=== PATIENT | female | born 1965 | race Caucasian/White ===

== ENCOUNTER → 2016-11-15 | Outpatient (CLI) | payer OTHER ==
--- NOTE | 2016-11-21 09:13 | CT ---
EXAMINATION TYPE: CT chest w con DATE OF EXAM: 11/15/2016 10:37 AM COMPARISON: Outside study 08/12/2015 HISTORY: Patient has solitary pulmonary nodule-right middle lobe CT DLP: 205.5 mGycm Automated exposure control for dose reduction was used. CONTRAST: CT scan of the chest is performed with IV Contrast, patient injected with 100 mL of Omnipaque 300. FINDINGS: LUNGS: 3 mm pulmonary nodule right middle lobe is stable. No additional pulmonary nodules identified. No evidence for parenchymal infiltrate or volume loss. There is no pleural effusion or pneumothorax seen. The tracheobronchial tree is patent. MEDIASTINUM: There are no greater than 1 cm hilar or mediastinal lymph nodes. No pericardial effusi on is seen. Thoracic aorta is of normal caliber. The heart is not enlarged. UPPER ABDOMEN: Simple cyst left hepatic lobe measures 7 mm. OTHER: No additional significant abnormality is seen. IMPRESSION: 1. Stable left pulmonary nodule over a two-year timeframe indicating benign process. No new or suspic ious nodules identified.
== END | disposition home or self-care (01) ==
LOC: RADCTMAIN 09:28
PROVIDERS: ATTEND Internal Medicine Critical Care Medicine
DX: R91.1 Solitary pulmonary nodule (principal)
CPT/HCPCS: 71260; Q9967

== ENCOUNTER → 2017-05-31 | Outpatient (CLI) | payer OTHER ==
--- NOTE | 2017-06-01 08:19 | CT ---
EXAMINATION TYPE: CT soft tissue neck w con DATE OF EXAM: 05/31/2017 HISTORY: Chronic cough for 3-4 years COMPARISON: CT chest dated 11/15/2016 CT DLP: 598 mGycm. Automated Exposure Control for Dose Reduction was Utilized. TECHNIQUE: CT scan of the neck is performed with IV Contrast, patient injected with 100 mL of Omnipa que 300, axial images are obtained, coronal and sagittal reformatted images are reviewed. FINDINGS: Airway: No gross abnormality seen. No tracheal polyp or mass is seen. Visualized upper airway is gonzalez nt and unremarkable. False and true vocal cords appear symmetric. Subcentimeter hypoattenuation withi n the left thyroid lobe is too small to characterize. Parotid/submandibular glands: Parotids and submandibular glands are symmetric without inflammatory ch jerome. Fossa of Rosenmuller and superficial mucosal space are well-preserved. Carotid/Vascular Structures: Ascending aorta and pulmonary artery are within normal limits. The great vessels have a normal configuration and branching pattern with no evidence of stenosis within in the visualized carotid systems. Vertebral arteries are codominant. Exam is not optimized for evaluation of intracranial structures. Osseous Structures: Visualized paranasal sinuses are well aerated. Osseous structures appear intact. Mild multilevel degenerative disc disease is seen at C4-C5 and C5-C6. Other: Few nonenlarged anterior and posterior cervical chain lymph nodes are present. Minimal subsegm ental dependent atelectasis is seen as well as mild biapical pleural-parenchymal thickening. IMPRESSION: 1. No CT evidence of tracheal polyp or mass, asymmetry of the vocal cords, paranasal sinus disease, o r apical lung mass in this patient with a history of cough. No CT findings to correspond to the patie nt's clinical concern.
== END | disposition home or self-care (01) ==
LOC: RADCTMAIN 18:40
PROVIDERS: ATTEND Internal Medicine Critical Care Medicine
DX: R22.1 Localized swelling, mass and lump, neck (principal); Z88.2 Allergy status to sulfonamides
CPT/HCPCS: 70491; Q9967

== ENCOUNTER → 2017-10-20 | Outpatient (CLI) | payer OTHER ==
--- NOTE | 2017-10-20 11:48 | CT ---
EXAMINATION TYPE: CT soft tissue neck w con DATE OF EXAM: 10/20/2017 9:27 AM COMPARISON: CT soft tissue neck 05/31/2017 HISTORY: Neck pain CT DLP: 273.10 mGycm Automated exposure control for dose reduction was used. CONTRAST: CT scan of the neck is performed following with IV Contrast, patient injected with 100 ml mL of Omnip aque 300. Axial images are obtained, coronal and sagittal reformatted images are reviewed. FINDINGS: Airway: No gross abnormality seen. Parotid/submandibular glands: No gross abnormality seen. The overlying BB the site of patient's symp tomatology is at the level of the submandibular gland on the left. Facial vein is noted at this level . Carotid/Vascular Structures: Patent, there is no evident carotid stenosis.. Osseous Structures: Skull base is normal. Degenerative disc changes are mild as on prior exam. Loss o f lordosis could be due to muscle spasm. Other: Minimal inflammatory change noted in the maxillary sinus on the right. No evident adenopathy. IMPRESSION: Mild degenerative disc disease.
== END | disposition home or self-care (01) ==
LOC: RADCTMAIN 08:57
PROVIDERS: ATTEND Otolaryngology
DX: M50.30 Other cervical disc degeneration, unspecified cervical region (principal)
CPT/HCPCS: 70491; Q9967

== ENCOUNTER → 2017-12-26 | Outpatient (CLI) | payer OTHER ==
--- NOTE | 2017-12-27 11:53 | ECHOF ---
Referral Reason:R01.1 CARDIAC MURMUR MEASUREMENTS -------- HEIGHT: 165.1 cm WEIGHT: 65.8 kg BP: IVSd: 1.0 cm (0.6 - 1.1) LVIDd: 4.4 cm (3.9 - 5.3) LVPWd: 1.2 cm (0.6 - 1.1) IVSs: 1.5 cm LVIDs: 2.5 cm LVPWs: 1.8 cm Ao Diam: 2.9 cm (2.0 - 3.7) AV Cusp: 1.4 cm (1.5 - 2.6) LA Diam: 2.9 cm (2.7 - 3.8) MV EXCURSION: 14.881 mm (> 18.000) MV EF SLOPE: 99 mm/s (70 - 150) EPSS: 0.4 cm MV E Andreas: 0.78 m/s MV DecT: 230 ms MV A Andreas: 0.53 m/s MV E/A Ratio: 1.46 RAP: 5.00 mmHg RVSP: 22.11 mmHg FINDINGS -------- Sinus rhythm. This was a technically difficult study with suboptimal apical views. The left ventricular size is normal. Left ventricular wall thickness is normal. Overall left vent ricular systolic function is normal with, an EF between 55 - 60 %. The right ventricle is normal in size and function. The left atrium is normal in size. The right atrium is normal in size. Aortic valve is trileaflet and is mildly thickened. Mild mitral regurgitation is present. There is mild mitral valve prolapse. Mild tricuspid regurgitation present. The right ventricular systolic pressure, as measured by Doppl er, is 22.11mmHg. Pulmonic valve appears structurally normal. The aortic root size is normal. Normal inferior vena cava with normal inspiratory collapse consistent with estimated right atrial pre ssure of 5 mmHg. The pericardium is normal. CONCLUSIONS -------- 1. Sinus rhythm. 2. This was a technically difficult study with suboptimal apical views. 3. The left ventricular size is normal. 4. Left ventricular wall thickness is normal. 5. Overall left ventricular systolic function is normal with, an EF between 55 - 60 %. 6. The right ventricle is normal in size and function. 7. The left atrium is normal in size. 8. The right atrium is normal in size. 9. Aortic valve is trileaflet and is mildly thickened. 10. Mild mitral regurgitation is present. 11. There is mild mitral valve prolapse. 12. Mild tricuspid regurgitation present. 13. The right ventricular systolic pressure, as measured by Doppler, is 22.11mmHg. 14. Pulmonic valve appears structurally normal. 15. The aortic root size is normal. 16. Normal inferior vena cava with normal inspiratory collapse consistent with estimated right atrial pressure of 5 mmHg. 17. The pericardium is normal. HOTEL ATTENDANT: Tasha Myers RDCS
== END ==
LOC: RADECHMAIN 15:53
PROVIDERS: ATTEND Family Medicine
DX: I08.1 Rheumatic disorders of both mitral and tricuspid valves (principal)
CPT/HCPCS: 93306

== ENCOUNTER → 2019-02-12 | Outpatient (CLI) | payer OTHER ==
--- NOTE | 2019-02-12 11:41 | XR ---
EXAMINATION TYPE: XR abdomen 1V DATE OF EXAM: 02/12/2019 COMPARISON: NONE HISTORY: Nausea and constipation TECHNIQUE: One view abdominal series FINDINGS: The osseous structures are intact. The bowel gas pattern is nonspecific. Calcification the pelvis li hardy vascular. Retained fecal debris seen throughout the colon.. IMPRESSION: 1. Nonspecific abdomen.
== END | disposition home or self-care (01) ==
LOC: RADXRMAIN 09:53
PROVIDERS: ATTEND Family Medicine
DX: R19.7 Diarrhea, unspecified (principal)
CPT/HCPCS: 74018

== ENCOUNTER → 2020-10-19 | Outpatient (CLI) | payer OTHER ==
--- NOTE | 2020-10-20 09:28 | CT ---
EXAMINATION TYPE: CT soft tissue neck w con DATE OF EXAM: 10/19/2020 HISTORY: cough and left sided neck swelling. COMPARISON: CT neck dated 10/20/2017. CT DLP: 286.1 mGycm. Automated Exposure Control for Dose Reduction was Utilized. TECHNIQUE: CT scan of the neck is performed with IV Contrast, patient injected with 100 mL of Isovue 300, axial images are obtained, coronal and sagittal reformatted images are reviewed. FINDINGS: Airway: No gross abnormality seen. No significant change from prior. Parotid/submandibular glands: No gross abnormality seen. No significant change from prior. Carotid/Vascular Structures: No significant stenosis. No significant change from prior. Osseous Structures: Loss of normal cervical curvature redemonstrated. Mild disc space narrowing and m ild spurring C4-C5 and C5-C6 levels redemonstrated. Vacuum disc phenomena at C4-C5 level redemonstrat ed. Other: No new greater than 1 cm neck adenopathy. Scattered subcentimeter lymph nodes bilaterally rede monstrated. IMPRESSION: No new mass or adenopathy. No significant change from prior CT.
== END | disposition home or self-care (01) ==
LOC: RADCTMAIN 17:53
PROVIDERS: ATTEND Otolaryngology
DX: R22.1 Localized swelling, mass and lump, neck (principal)
CPT/HCPCS: 70491; Q9967

== ENCOUNTER → 2021-06-08 | Outpatient (CLI) | payer OTHER ==
--- NOTE | 2021-06-08 13:40 | US ---
EXAMINATION TYPE: US transvaginal DATE OF EXAM: 06/08/2021 COMPARISON: NONE CLINICAL HISTORY: N95.0 Post menopausal bleeding. TECHNIQUE: Transvaginal (TV). Date of LMP: postmenopausal EXAM MEASUREMENTS: Uterus: 8.1 x 4.1 x 5.3 cm Endometrial Stripe: 0.5 cm Right Ovary: not identified Left Ovary: not identified 1. Uterus: Anteverted heterogeneous echotexture 2. Endometrium: wnl 3. Right Ovary: Obscured by overlying bowel gas 4. Left Ovary: Obscured by overlying bowel gas 5. Bilateral Adnexa: extensive peristalsing bowel noted. 6. Posterior cul-de-sac: wnl IMPRESSION: 1. Heterogeneous echo pattern to the uterus without discrete fibroid. This is a nonspecific finding c ould be correlated with MRI as clinically warranted. 2. Ovaries are not seen. No abnormal free fluid. 3. endometrial stripe measures 5 mm which is at the upper limits of normal or slightly thickened. Cor relate clinically.
== END | disposition home or self-care (01) ==
LOC: RADUSWWP 13:04
PROVIDERS: ATTEND Family Medicine
DX: N95.0 Postmenopausal bleeding (principal)
CPT/HCPCS: 76830

== ENCOUNTER → 2021-06-17 | Outpatient (CLI) | payer OTHER ==
--- NOTE | 2021-06-17 17:06 | BD ---
EXAMINATION TYPE: Axial Bone Density DATE OF EXAM: 06/17/2021 COMPARISON: 07/17/2017 CLINICAL HISTORY: postmenopausal screening Height: 64 Weight: 141.1 FRAX RISK QUESTIONS: Alcohol (3 or more units per day): no Family History (Parent hip fracture): yes Glucocorticoids (More than 3mos): no (Ex: prednisone, prednisolone, methylprednisolone, dexamethasone, and hydrocortisone). History of Fracture in Adulthood: no Secondary Osteoporosis: 1. Type 1 Diabetes: no 2. Hyperthyroidism: no 3. Menopause before 45: no 4. Malnutrition: no 5. Chronic liver disease: no Rheumatoid Arthritis: no Current Tobacco Use: no RISK FACTORS HISTORY OF: History of Wrist Fracture: yes When: as a child Surgery to Spine/Hip(right/left)/Wrist (right/left): no Family History of Osteoporosis: yes Active: yes Diet low in dairy products/other sources of calcium: no Postmenopausal woman: yes Lost more than 2 inches in height since high school: no MEDICATIONS: acid reflux meds Additional History: EXAM MEASUREMENTS: Bone mineral densitometry was performed using the [employer] System. Bone mineral density as measured about the Lumbar spine is: ----- L1-L4(G/cm2): 1.000 T Score Values are as follows: ----- L2: -1.2 ----- L3: -1.4 ----- L4: -1.9 ----- L1-L4: -1.5 Bone mineral density has: decreased -15.1 % since study of: 07.17.2017 Bone mineral density about the R hip (g/cm2): 0.759 Bone mineral density about the L hip (g/cm2): 0.826 T Score values are as follows: -----R Neck: -2.0 -----L Neck: -1.5 -----R Total: -1.5 -----L Total: -1.2 Bone mineral density has: decreased -10.7 % since study of: 07.17.2017 IMPRESSION: Osteopenia (T Score between -2.5 and -1). There is slightly increased risk of fracture and the patient may be considered for treatment. Re-Screen 2-5 years. NOTE: T-SCORE=SD OF THE YOUNG ADULT MEAN.
== END | disposition home or self-care (01) ==
LOC: RADBDWWP 10:55
PROVIDERS: ATTEND Family Medicine
DX: Z13.820 Encounter for screening for osteoporosis (principal); M85.89 Other specified disorders of bone density and structure, multiple sites; Z78.0 Asymptomatic menopausal state
CPT/HCPCS: 77080

== ENCOUNTER → 2021-07-21 | Day surgery (SDC) | payer OTHER ==
[2021-07-20 09:23] VITALS: BMI 24.2
[~2021-07-21] MED LIST: LACTATED RINGERS 1,000 ML IV SCH; LIDOCAINE 1% (10MG/ML) FOR IV START INTRADERMA PRN; PROPOFOL 10 MG/ML 20 ML VIAL IV ONE
[2021-07-21 09:31] VITALS: TEMP 98
--- NOTE | 2021-07-21 10:36 | P.PCN ---
Date of Procedure: 07/21/21 Procedure(s) Performed: BRIEF HISTORY: Patient is a 55-year-old pleasant white female scheduled for an elective colonoscopy as a part of screening for colorectal neoplasia. PROCEDURE PERFORMED: Colonoscopy with snare polypectomy. PREOPERATIVE DIAGNOSIS: Screening for colon cancer. IV sedation per Anesthesia. PROCEDURE: After informed consent was obtained, the patient, was brought into the endoscopy unit. IV sedation was administered by Anesthesia under continuous monitoring. Digital rectal examination was normal. Initially the Olympus CF-160 flexible video colonoscope was then inserted in the rectum, gradually advanced into the cecum without any difficulty. Careful examination was performed as the scope was gradually being withdrawn. Ileocecal valve and the appendiceal orifice were visualized and appeared normal. Prep was excellent. Mucosa of the cecum, ascending colon, transverse colon, descending colon, sigmoid colon, and rectum appeared normal. Scattered left sided diverticulosis seen. In the distal rectum there was a 5-6 mm polyp that was removed by snare polypectomy. Retrofl exion was performed in the rectum and grade 2 internal hemorrhoids were seen. The patient tolerated the procedure well. IMPRESSION: 5 mm distal rectal polyp status post polypectomy Scattered diffuse diverticulosis Grade 2 internal hemorrhoids RECOMMENDATIONS: Findings of this examination were discussed with the patient as well as a family. She was advised to follow with the biopsy results. If the biopsy reveals adenoma she can have a repeat colonoscopy in 5 years.
[2021-07-21 11:01] VITALS: BP 102/63; PULSE 64; RESP 16
== END ==
LOC: ORWHC2ENDO 08:43
PROVIDERS: ATTEND Internal Medicine Gastroenterology
DX: Z12.11 Encounter for screening for malignant neoplasm of colon (principal); D12.8 Benign neoplasm of rectum; K57.30 Diverticulosis of large intestine without perforation or abscess without bleeding; K64.1 Second degree hemorrhoids; J30.2 Other seasonal allergic rhinitis; Z79.899 Other long term (current) drug therapy; Z79.51 Long term (current) use of inhaled steroids; Z88.1 Allergy status to other antibiotic agents; Z88.2 Allergy status to sulfonamides
CPT/HCPCS: 88305; 45385; J2704

== ENCOUNTER → 2021-08-05 | Outpatient (CLI) | payer OTHER ==
--- NOTE | 2021-08-09 10:24 | MM ---
Reason for exam: screening (asymptomatic). Last mammogram was performed 6 years and 8 months ago. History: Patient is postmenopausal. Family history of breast cancer in paternal grandmother. Benign excisional biopsy of the left breast, 1979. Physical Findings: A clinical breast exam by your physician is recommended on an annual basis and results should be correlated with mammographic findings. MG Screening Mammo w CAD Bilateral CC and MLO view(s) were taken. Prior study comparison: November 21, 2014, bilateral MG diagnostic mammo w CAD [facility]. The breast tissue is extremely dense which could obscure a lesion on mammography. No significant changes when compared with prior studies. ASSESSMENT: Benign, BI-RAD 2 RECOMMENDATION: Routine screening mammogram of both breasts in 1 year.
== END | disposition home or self-care (01) ==
LOC: RADMAMWWP 11:30
PROVIDERS: ATTEND Family Medicine
DX: Z12.31 Encounter for screening mammogram for malignant neoplasm of breast (principal); Z78.0 Asymptomatic menopausal state; Z80.3 Family history of malignant neoplasm of breast
CPT/HCPCS: 77067

== ENCOUNTER → 2022-08-08 | Outpatient (CLI) | payer OTHER ==
--- NOTE | 2022-08-09 11:07 | MM ---
Reason for Exam: Screening (asymptomatic). Last screening mammogram was performed 12 month(s) ago. Patient History: Menarche at age 12. First Full-Term at age 21. Postmenopausal. 1980, Benign Excisional Biopsy on the left side. Paternal grandmother had breast cancer. Risk Values: Antonia 5 year model risk: 1.4%. NCI Lifetime model risk: 8.3%. Prior Study Comparison: 05/24/2013 Right Diagnostic Mammogram, [facility]. 11/21/2014 Bilateral Diagnostic Mammogram, [facility]. 08/05/2021 Bilateral Screening Mammogram, [facility]. Tissue Density: The breast tissue is heterogeneously dense. This may lower the sensitivity of mammography. Findings: Analyzed By CAD. There are scattered and loosely grouped tiny benign-appearing round calcifications throughout the bilateral breasts. There is no suspicious new group of microcalcifications or new suspicious mass in either breast. Overall Assessment: Benign, BI-RAD 2 Management: Screening Mammogram of both breasts in 1 year. A clinical breast exam by your physician is recommended on an annual basis and results should be correlated with mammographic findings. Electronically signed and approved by: Farhan Dupree M.D.
== END | disposition home or self-care (01) ==
LOC: RADMAMWWP 11:22
PROVIDERS: ATTEND Family Medicine
DX: Z12.31 Encounter for screening mammogram for malignant neoplasm of breast (principal); Z78.0 Asymptomatic menopausal state; Z80.3 Family history of malignant neoplasm of breast; Z98.890 Other specified postprocedural states
CPT/HCPCS: 77063; 77067

== ENCOUNTER → 2023-08-09 | Outpatient (CLI) | payer OTHER ==
--- NOTE | 2023-08-10 07:55 | BD ---
EXAMINATION TYPE: Axial Bone Density DATE OF EXAM: 08/09/2023 CLINICAL HISTORY: 57 years old Female. ICD-10 CODE: M85.9 bone disorder Height: 64 in Weight: 137 lbs FRAX RISK QUESTIONS: Family History (Parent hip fracture): yes mother and father RISK FACTORS HISTORY OF: Active: yes Postmenopausal woman: age 54 MEDICATIONS: Thyroid Medications: yes Which medication: Levothyroxine How Lon+ years Osteoporosis Medications: yes Which medication: risedronate sodium How Lon years Additional Medications: multi vit, gerd meds, asthma inhaler EXAM MEASUREMENTS: Bone mineral densitometry was performed using the [employer] System. Bone mineral density as measured about the Lumbar spine is: ----- L1-L4(G/cm2): 1.029 T Score Values are as follows: ----- L1: -1.3 ----- L2: -1.4 ----- L3: -1.2 ----- L4: -1.3 ----- L1-L4: -1.3 Z Score Values are as follows: ----- L1: -0.1 ----- L2: -0.2 ----- L3: 0.0 ----- L4: -0.1 ----- L1-L4: -0.1 Bone mineral density has: Increased 2.9since study of: 06/17/2021 Bone mineral density about the R hip (g/cm2): 0.807 Bone mineral density about the L hip (g/cm2): 0.847 T Score values are as follows: -----R Neck: -2.2 -----L Neck: -1.4 -----R Total: -1.6 -----L Total: -1.3 Z Score values are as follows: -----R Neck: -0.9 -----L Neck: -0.1 -----R Total: -0.7 -----L Total: -0.4 Bone mineral density has: Decreased -1.1ince study of: 06/17/2021 FRAX%s: The graph provided illustrates a 18.0hance for a major osteoporotic fx and a 1.5chance for th e hips probability for fx in 10 years time. IMPRESSION: Osteopenia (T Score between -2.5 and -1). There is slightly increased risk of fracture and the patient may be considered for treatment. Re-Screen 2-5 years. NOTE: T-SCORE=SD OF THE YOUNG ADULT MEAN.
--- NOTE | 2023-08-10 08:25 | MM ---
Reason for Exam: Screening (asymptomatic). Last screening mammogram was performed 12 month(s) ago. Patient History: Menarche at age 12. First Full-Term at age 21. Postmenopausal. 1980, Benign Excisional Biopsy on the left side. Paternal grandmother had breast cancer. Risk Values: Antonia 5 year model risk: 1.4%. NCI Lifetime model risk: 8.1%. Prior Study Comparison: 11/21/2014 Bilateral Diagnostic Mammogram, [facility]. 08/05/2021 Bilateral Screening Mammogram, [facility]. 08/08/2022 Bilateral MG 3D screening mammo w/cad, [facility]. Tissue Density: The breast tissue is heterogeneously dense. This may lower the sensitivity of mammography. Findings: Analyzed By CAD. There is no suspicious group of microcalcifications or new suspicious mass in either breast. Overall Assessment: Benign, BI-RAD 2 Management: Screening Mammogram of both breasts in 1 year. . Patient should continue monthly self-breast exams. A clinical breast exam by your physician is recommended on an annual basis. This exam should not preclude additional follow-up of suspicious palpable abnormalities. Note on Antonia scores and lifetime risk: 1. A Antonia score greater than 3% is considered moderate risk. If this is the case, consider specialist referral to assess eligibility for a risk reducing agent. 2. If overall lifetime risk for the development of breast cancer is 20% or higher, the patient may qualify for future screening with alternating mammogram and breast MRI. Electronically signed and approved by: Isidoro Ogden M.D. Radiologis
== END | disposition home or self-care (01) ==
LOC: RADMAMWWP 12:48
PROVIDERS: ATTEND Family Medicine
DX: Z12.31 Encounter for screening mammogram for malignant neoplasm of breast (principal); M85.89 Other specified disorders of bone density and structure, multiple sites; Z78.0 Asymptomatic menopausal state; Z80.3 Family history of malignant neoplasm of breast
CPT/HCPCS: 77067; 77080

== ENCOUNTER 2024-04-19 11:00 | Day surgery (SDC) | payer OTHER ==
[~2024-04-19 11:00] MED LIST changes: +LACTATED RINGERS 1,000 ML BAG ONE; -LACTATED RINGERS 1,000 ML IV SCH; -LIDOCAINE 1% (10MG/ML) FOR IV START INTRADERMA PRN; +LIDOCAINE HCL/PF 20 MG/ML 10 ML AMP ONE
--- NOTE | 2024-04-19 15:58 | PCN ---
PROCEDURE NOTE REQUESTING PHYSICIAN: Dr. Anabell Cr. BRIEF HISTORY: The patient is a 58-year-old pleasant white female scheduled for an elective upper endoscopy as part of evaluation of longstanding history of GERD and intermittent chronic cough for the last several years' duration. She has been on rabeprazole 20 mg twice daily and was doing well recently. She tried to cut down to 20 mg daily and started having worsening cough. She is scheduled for an upper endoscopy to rule out complicated reflux disease. PROCEDURE PERFORMED: EGD with biopsy. PREOPERATIVE DIAGNOSES: Chronic GERD and chronic cough. ANESTHESIA: IV sedation per Anesthesia. DESCRIPTION OF PROCEDURE: After informed consent was obtained from the patient, she was brought in to the endoscopy unit. IV conscious sedation was administered by Anesthesia under continuous monitoring. Initially, the Olympus CF-180 video endoscope was inserted in the mouth, esophagus intubated without any difficulty and was gradually advanced into the stomach and duodenum and carefully examined. Bulb and the 2nd part of the duodenum appeared normal. The scope at this time was withdrawn through the stomach, adequately insufflated with air and upon careful examination mucosa of the antrum had linear areas of erythema consistent with gastritis and biopsies for H pylori were done. Body of the stomach appeared normal and on retroflexion, cardia and fundus appeared normal. Scope was then withdrawn through the esophagus. The GE junction was located at 40 cm from the incisors. It appeared regular. There was a very small sliding-type hiatal hernia noted. There were no erosions or ulcerations noted. The rest of the esophagus appeared normal. Biopsies were done from the distal esophagus and the patient tolerated the procedure well. IMPRESSION: 1. Small hiatal hernia, but no evidence of esophagitis or peptic ulcer disease. 2. Mild antral gastritis. RECOMMENDATIONS: Findings of this examination were discussed with the patient as well as her family. She was advised to follow up with the biopsy results. Continue with rabeprazole 20 mg twice daily and follow anti-reflux measures. MMODL / IJN: [id number] /
== END 2024-04-19 11:31 ==
LOC: ORWHC2ENDO 11:00
PROVIDERS: ATTEND Internal Medicine Gastroenterology
DX: K29.50 Unspecified chronic gastritis without bleeding (principal); K44.9 Diaphragmatic hernia without obstruction or gangrene; K21.9 Gastro-esophageal reflux disease without esophagitis; J45.909 Unspecified asthma, uncomplicated; Z79.899 Other long term (current) drug therapy; Z88.1 Allergy status to other antibiotic agents
CPT/HCPCS: 43239; 88305